=== PATIENT | female | born 1990 ===

== ENCOUNTER 2022-05-08 09:36 | Emergency (ER) | payer MEDICAID ==
[~2022-05-08] VITALS: Ht 170.2 cm; Wt 104.5 kg
[2022-05-08] MEDS ORDERED: CABENUVA IM (09:41)
[2022-05-08 09:42] VITALS: BP 143/78
[2022-05-08] MEDS ORDERED: ACETAMINOPHEN 500 MG TABLET PO ONE (12:15)
[2022-05-08] MEDS ORDERED: IBUPROFEN 600 MG TABLET PO ONE (12:15)
[2022-05-08] MEDS ORDERED: DOXYCYCLINE HYCLATE 100 MG TABLET PO ONE (12:15)
[2022-05-08] MEDS ORDERED: LIDOCAINE 1% 10 ML VIAL SQ ONE (12:15)
[2022-05-08] MEDS ORDERED: DOXY-354 PO (12:40)
[2022-05-08] MEDS ORDERED: IBUP-1492 PO (12:40)
== END 2022-05-08 13:10 | disposition home or self-care (01) ==
LOC: EMS 09:41
DX: L02.411 Cutaneous abscess of right axilla (principal); Z98.890 Other specified postprocedural states; Z88.8 Allergy status to other drugs, medicaments and biological substances
CPT/HCPCS: 99284; 10060; J3490